=== PATIENT | female | born 1990 | race Caucasian/White ===

== ENCOUNTER 2016-04-24 12:19 | Outpatient (CLI) | payer OTHER ==
--- NOTE | 2016-04-24 13:58 | Diagnostic Imaging Report ---
MARK ANTHONY HELM [facility] [id number] [facility] [address] 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 Findings: Examination of the cervical spine in AP, lateral, lateral swimmer's and open mouth views demonstrates slight reversal of the normal cervical lordosis with apex at C5. Prevertebral soft tissues are within normal limits. There is no evident fracture. The C1-2 articulation is normal and the base of the odontoid is intact. Impression: 1. Reversal of the normal cervical lordosis. 2. No fracture. 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
== END 2016-04-24 12:20 ==
LOC: RAD 12:19
PROVIDERS: ATTEND Family Medicine
DX: M54.2 Cervicalgia (principal)
CPT/HCPCS: 72040; 81025

== ENCOUNTER 2016-09-14 18:31 | Emergency (ER) | payer OTHER ==
[~2016-09-14 18:31] MED LIST: LIDOCAINE 1%/EPINEPHRINE 20ML VIAL IJ ONE
[2016-09-14] MEDS ORDERED: LIDOCAINE 1%/EPINEPHRINE 20ML VIAL IJ ONE (18:43)
[2016-09-14] MEDS ORDERED: DIPH,PERTUSS(ACELL),TET VAC/PF 0.5 ML DISP.SYRIN IM ONE (19:02)
[2016-09-14 19:13] VITALS: BP 132/89
--- NOTE | 2016-09-14 19:48 | ED Physician Documentation ---
General Adult - HISTORIAN Historian: patient - HPI Stated Complaint: laceration Chief Complaint: Laceration/Recheck/Suture Additional Information: Dara is working on remodeling the bathroom at her house. She pulled out a drawer, which caught underneath her left knee and cut it open. She denies other injury. Onset: minutes - ROS CONST: no problems EYES/ENT: none CVS/RESP: none GI/: none MS/SKIN/LYMPH: other (laceration to left leg). denies: leg swelling NEURO/PSYCH: denies: headache, fainting, difficulty walking - PAST HX Past History: other (multiple orthopedic injuries) Other History: none Surgeries/Procedures: other (finger repair after crush injury) Immunizations: referred to PCP Allergies/Adverse Reactions: Allergies Allergy/AdvReac Type Severity Reaction Status Date / Time No Known Allergies Allergy Verified 09/14/16 18:42 Home Medications: Ambulatory Orders Medication Instructions Recorded Norethindrone-E.estradiol-Iron 1 tab PO DAILY 09/14/16 [Microgestin Fe 1.5-30 Tab] - SOCIAL HX Smoking History: non-smoker Alcohol Use: none Drug Use: none - FAMILY HX Family History: No (non-contributory) - VITAL SIGNS Vital Signs: Vital Signs Temp Pulse Resp BP Pulse Ox 98.9 F 81 19 132/89 98 09/14/16 19:12 09/14/16 19:12 09/14/16 19:12 09/14/16 19:12 09/14/16 19:12 - REVIEWED ASSESSMENTS Nursing Assessment Reviewed: Yes Vitals Reviewed: Yes Procedures Wound Location: lower extremity Wound Length: 2.5cm Wound's Depth, Shape: superficial Wound Explored: clean Anesthesia: Lidocaine w/ Epi Wound Repaired With: sutures Suture Size/Type: 4:0 Number of Sutures: 2 Layer Closure?: No Sterile Dressing Applied?: Yes ED Results Lab/Radiology - Orders Orders: ED Orders Category Date Time Status Diph,Pertuss(Acell),Tet Vac/Pf [Adacel] Med 09/14/16 19:02 Discontinued 0.5 ml IM .ONCE ONE Lidocaine 1%/Epinephrine [Xylocaine 1%-EPI 1:100,000] Med 09/14/16 18:43 Discontinued 1 ml IJ .STK-MED ONE Lidocaine 1%/Epinephrine [Xylocaine 1%-EPI 1:100,000] Med 09/14/16 18:30 Discontinued 2 ml IJ NOW ONE General Adult Physical Exam - PHYSICAL EXAM GENERAL APPEARANCE: no distress EENT: eye inspection normal, no signs of dehydration NECK: normal inspection. No: stiff neck RESPIRATORY: no resp distress. No: wheezes CVS: other (no shortness of breath or LE edema) ABDOMEN: soft, no distension SKIN: warm/dry, normal color, other (2.5cm laceration under left knee) EXTREMITIES: normal range of motion. No: edema NEURO: oriented X3, CN's nml as tested Discharge Clincal Impression: Laceration Referrals: Addis Oneill MD [Primary Care Provider] - 2 Days Home Medications: Ambulatory Orders Norethindrone-E.estradiol-Iron [Microgestin Fe 1.5-30 Tab] 1 tab PO DAILY Condition: Stable Disposition: 01 HOME, SELF-CARE Decision to Admit: NO Decision Time: 19:10
== END 2016-09-14 19:12 | disposition home or self-care (01) ==
LOC: ED 18:31
DX: S81.012A Laceration without foreign body, left knee, initial encounter (principal); X58.XXXA Exposure to other specified factors, initial encounter; Y93.9 Activity, unspecified; Y99.9 Unspecified external cause status
CPT/HCPCS: 12001; 90471; 90715; 99283